=== PATIENT | female | born 1970 | race Asian ===

== ENCOUNTER 2017-07-31 11:34 | Observation (INO) | payer OTHER ==
[~2017-07-31] VITALS: Ht 162.6 cm; Wt 83.9 kg
--- NOTE | 2017-07-31 12:13 | ED GI/GU/ABDOMINAL COMPLAINT ---
History of Present Illness General Chief Complaint: Abdominal Pain/Flank Pain Stated Complaint: ABD PAIN SINCE THIS AM Source: patient, family, old records Exam Limitations: no limitations Allergies Coded Allergies: No Known Allergies (07/31/17) Reconcile Medications Clotrimazole (Lotrimin AF) 1 % CREAM..G. 1 LAURE TOP BID ringworm .apply to affected area(s) Oxycodone HCl/Acetaminophen (Percocet 5-325 MG Tablet) 5 MG-325 MG TABLET 1 TAB PO Q4-6 PRN postop pain . Triage Note: PT TO ED WITH C/O DIARRHEA LAST NIGHT, THIS AM MORE DIARRHEA AND VOMITING X 2 THIS AM. LAST MENSES: 07/18/17. Triage Nurses Notes Reviewed? yes ? n Is pt currently ? No HPI: 47F no PMH presenting with diarrhea since last night (2 episodes last night, 2 this morning), as well as since this morning, RLQ pain, malaise, weakness, and nausea. Was in her usual state of health prior to last night, ate a normal dinner, then had loose stools. Pain started abruptly this morning and has been persistent, described as stabbing, non-radiating, not better with lying still or with movement. Diarrhea was described as loose, watery, non-bloody. Denies fever, chills, sore throat, headache, chest pain, SOB, dysuria, hematuria. Of note, patient also noticed a circular red rash on her back that is non-pruritic. (Guera SAUCEDO,Cb) Vital Signs & Intake/Output Vital Signs & Intake/Output ED Intake and Output 08/02 0000 08/01 1200 Intake Total 600 Output Total 800 Balance -200 Intake, IV 600 Output, Urine 800 Patient 83.915 kg Weight (Anna SAUCEDO,Mauricio Moseley) Past History Travel History Traveled to [place] past 21 day No Medical History Any Pertinent Medical History? 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 No (Cb Lynne MD) Review of Systems Review of Systems Constitutional: Reports: no symptoms. EENTM: Reports: no symptoms. Respiratory: Reports: no symptoms. Cardiovascular: Reports: no symptoms. GI: Reports: see HPI. Genitourinary: Reports: no symptoms. Musculoskeletal: Reports: no symptoms. Skin: Reports: no symptoms. Neurological/Psychological: Reports: no symptoms. Hematologic/Endocrine: Reports: no symptoms. Immunologic/Allergic: Reports: no symptoms. All Other Systems: Reviewed and Negative (Cb Lynne MD) Physical Exam Physical Exam General Appearance: well developed/nourished, moderate distress Head: atraumatic, normal appearance Eyes: Bilateral: normal appearance. Ears, Nose, Throat, Mouth: hearing grossly normal, dry mucous membranes Neck: normal inspection, supple, full range of motion Respiratory: normal breath sounds, chest non-tender, no respiratory distress Cardiovascular: regular rate/rhythm Gastrointestinal: soft, RLQ tenderness, no rebound, +guarding Back: normal inspection, normal range of motion Extremities: normal range of motion Neurologic/Psych: awake, alert, oriented x 3, normal mood/affect Skin: intact, normal color, warm/dry, circular ring-like erythematous rash on right back consistent with ringworm Core Measures ACS in differential dx? No Sepsis Present: No Sepsis Focused Exam Completed? No (Cb Lynne MD) Progress Differential Diagnosis: AAA, AMI, appendicitis, biliary colic, bowel obstruction , colon cancer, cholecystitis, diverticulitis, ectopic , endometritis, esophageal varices, gastritis, hepatitis, hernia, hemorrhoids, ischemic bowel, inflamm bowel dis, intrauterine , kidney stone, [place] tear, ovarian cyst, ovarian torsion, pancreatitis, PID/cervicitis, peptic ulcer, PUD/ GERD, perforated viscous, SBO, threatened AB, UTI/pyelo Diagnostic Imaging: Viewed by Me: CT Scan. Discussed w/RAD: CT Scan. Radiology Impression: PATIENT: ESTHER SALAS PRESENT AGE: 47 PATIENT ACCOUNT NO: [id number] : 74 LOCATION: [facility], [place] ORDERING PHYSICIAN: Cb Lynne MD SERVICE DATE: 07/31/17 EXAM TYPE: CAT - CT ABD & PELVIS W IV CONTRAST EXAMINATION: CT ABDOMEN AND PELVIS WITH CONTRAST CLINICAL INFORMATION: Right lower quadrant pain. Diarrhea and vomiting. COMPARISON: None TECHNIQUE: Multidetector volumetric imaging was performed of the abdomen and pelvis following IV administration of 94 mL of Optiray 320 intravenous contrast. Sagittal and coronal reformatted images were obtained on the technologist's workstation. DLP: 419.27 mGy-cm FINDINGS: LUNG BASES: The visualized lung bases are unremarkable. LIVER, GALLBLADDER, AND BILIARY TREE: The liver is normal in size, shape, and attenuation. No focal hepatic lesion or biliary ductal dilatation is present. The gallbladder is unremarkable with no evidence of radiopaque gallstones, gallbladder wall thickening, or obvious pericholecystic inflammatory changes. PANCREAS: Unremarkable. SPLEEN: Unremarkable. ADRENAL GLANDS: Unremarkable. KIDNEYS AND URETERS: The kidneys are normal in size, shape, and attenuation. No hydronephrosis, hydroureter, or calculi seen. No perinephric stranding. There are scattered nonenhancing cortical cysts in both kidneys. BLADDER: Unremarkable. GASTROINTESTINAL TRACT: No right lower quadrant the appendix is dilated to a diameter of 0.9 cm. There is subtle edema in the mesenteric fat around the appendix. Findings consistent with appendicitis. There is no abscess or perforation. Small amount of free fluid right side of pelvis. No free air. The small and large bowel are unremarkable. ABDOMINAL WALL: No significant hernia is appreciated. LYMPH NODES: Normal. VASCULAR: Unremarkable. PELVIC VISCERA: Uterus is anteverted. 2.3 cm hypodensity in the right ovary of dominant follicle. No fluid in the cul-de-sac. OSSEOUS STRUCTURES: Minimal degenerative lipping at the anterior endplates of the lumbar vertebrae. Schmorl's node superior anterior endplate of L4. IMPRESSION: Appendicitis. 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:ALEXANDRA DATE/TIME TRANSCRIBED:07/31/171610 Initial ED [facility]KG: none [facility] Plan of Care: Orders Procedure Date/time Status Add-on Test (ER Only) 07/31 1411 Active HIGH SENSITIVITY CRP 07/31 1230 Complete URINE 07/31 1142 Complete URINALYSIS 07/31 1142 Complete LIPASE 07/31 1142 Complete COMPREHENSIVE METABOLIC PANEL 07/31 1142 Complete CBC WITHOUT DIFFERENTIAL 07/31 1142 Complete AMYLASE 07/31 1142 Complete Laboratory Tests 07/31/17 1348: Urinalysis LIGHT H, Urine Color YEL, Urine Clarity HAZY H, Urine pH 6.0, Ur Specific [place] >= 1.030, Urine Protein 30 H, Urine Ketones 40 H, Urine Nitrite NEG, Urine Bilirubin NEG, Urine Urobilinogen 0.2, Ur Leukocyte Esterase NEG, Ur Microscopic SEDIMENT EXAMINED, Urine RBC 1-3, Urine WBC 1-3 H, Ur Epithelial Cells MANY H, Urine Bacteria MANY H, Urine Mucus MANY H, Urine Hemoglobin NEG, Urine Glucose NEG, Urine Test NEGATIVE 07/31/17 1230: Anion Gap 14, Estimated GFR > 60, BUN/Creatinine Ratio 26.0 H, Glucose 108 H, Calcium 9.0, Total Bilirubin 0.8, AST 25, ALT 34, Alkaline Phosphatase 34, C- React Prot High Sens 0.4 L, Total Protein 7.5, Albumin 4.3, Globulin 3.2, Albumin/Globulin Ratio 1.3, Amylase 69, Lipase 63, CBC w Diff MAN DIFF ORDERED, RBC 4.40, MCV 70.5 L, MCH 21.7 L, RDW 23.5 H, MPV 9.3, Segmented Neutrophils 88 H, Band Neutrophils 4, Lymphocytes 6 L, Monocytes 2, Platelet Estimate ADEQUATE, Polychromasia 1+, Hypochromic-Microcytic 2+, Poikilocytosis 1+, Anisocytosis 2+, Microcytic Cells 2+, Ovalocytes 1+, PUBS MCHC 30.8 L Comments: 07/31/2017 5:07:01 PM case discussed with Dr. Hodges, surgical PA paged. (Anna SAUCEDO,Mauricio Moseley) Departure Departure Disposition: STILL A PATIENT Condition: Stable Clinical Impression Primary Impression: Acute appendicitis Secondary Impressions: Tinea corporis Referrals: Rick Mendoza MD (PCP/Family) Departure Forms: Customer Survey General Discharge Information Prescriptions: Current Visit Scripts Oxycodone HCl/Acetaminophen (Percocet 5-325 MG Tablet) 1 TAB PO Q4-6 PRN postop pain #18 TAB . Clotrimazole (Lotrimin AF) 1 LAURE TOP BID #24 GM .apply to affected area(s) OR/GI Note Spoke With: Carroll SAUCEDO,Rey N. ED Treatment Decision: ESTHER SALAS requires urgent operative management or an emergent procedure that cannot be performed in the Emergency Room setting. Transport To: [facility] (Cb Lynne MD)
[2017-07-31 13:03] LABS: MEAN CORPUSCULAR HGB 21.7 PG (27.0-31.0); MEAN CORPUSCULAR HGB CONC 30.8 G/DL (33.0-37.0); MEAN CORPUSCULAR VOLUME 70.5 FL (81.0-99.0); MEAN PLATELET VOLUME 9.3 FL (7.4-10.4); RBC DISTRIBUTION WIDTH 23.5 % (11.5-14.5)
[2017-07-31 13:21] LABS: PLATELET COUNT 292 /CUMM (130-400)
--- NOTE | 2017-07-31 16:21 | CT SCAN REPORT ---
EXAMINATION: CT ABDOMEN AND PELVIS WITH CONTRAST CLINICAL INFORMATION: Right lower quadrant pain. Diarrhea and vomiting. COMPARISON: None TECHNIQUE: Multidetector volumetric imaging was performed of the abdomen and pelvis following IV administration of 94 mL of Optiray 320 intravenous contrast. Sagittal and coronal reformatted images were obtained on the technologist's workstation. DLP: 419.27 mGy-cm FINDINGS: LUNG BASES: The visualized lung bases are unremarkable. LIVER, GALLBLADDER, AND BILIARY TREE: The liver is normal in size, shape, and attenuation. No focal hepatic lesion or biliary ductal dilatation is present. The gallbladder is unremarkable with no evidence of radiopaque gallstones, gallbladder wall thickening, or obvious pericholecystic inflammatory changes. PANCREAS: Unremarkable. SPLEEN: Unremarkable. ADRENAL GLANDS: Unremarkable. KIDNEYS AND URETERS: The kidneys are normal in size, shape, and attenuation. No hydronephrosis, hydroureter, or calculi seen. No perinephric stranding. There are scattered nonenhancing cortical cysts in both kidneys. BLADDER: Unremarkable. GASTROINTESTINAL TRACT: No right lower quadrant the appendix is dilated to a diameter of 0.9 cm. There is subtle edema in the mesenteric fat around the appendix. Findings consistent with appendicitis. There is no abscess or perforation. Small amount of free fluid right side of pelvis. No free air. The small and large bowel are unremarkable. ABDOMINAL WALL: No significant hernia is appreciated. LYMPH NODES: Normal. VASCULAR: Unremarkable. PELVIC VISCERA: Uterus is anteverted. 2.3 cm hypodensity in the right ovary of dominant follicle. No fluid in the cul-de-sac. OSSEOUS STRUCTURES: Minimal degenerative lipping at the anterior endplates of the lumbar vertebrae. Schmorl's node superior anterior endplate of L4. IMPRESSION: Appendicitis.
--- NOTE | 2017-07-31 19:48 | Operative Report ---
Operative/Inv Procedure Report Surgery Date: 07/31/17 Name of Procedure: Lap appendectomy Pre-Operative Diagnosis: Acute appendicitis Post-Operative Diagnosis: Same Estimated Blood Loss: scant Surgeon/Accredited Farm Manager: Carroll SAUCEDO,Rey MURO Anesthesia: general endotracheal tube Operative/Procedure Note Note: Patient was placed on the OR table in the supine position. After successful induction of general anesthesia the patient's abdomen was prepped clipped and draped in the usual sterile fashion The left arm was tucked. Local anesthetic was injected at the top of the umbilicus and entry into the peritoneum was established via the open Solares technique: a one cm curved incision was made at the top of the umbilicus, the linea alba was secured between 2 pediatric Jacki clamps and incised vertically, 0-Vicryl stay sutures were placed on each side and then while retracting upwards, the peritoneal layer was entered sharply, then through that small opening, using an S retractor acting like a shoehorn, a 10 mm blunt trocar was inserted obliquely to the right and secured with the stay sutures. The gas was turned on to maximum of 15 mm, two 5 mm dissecting ports were then inserted, one suprapubic and one left lower quadrant, laterally. We used a local anesthetic needle to guide their trajectories, particular attention was given to avoid injury to the bowel, the bladder and the epigastric vessels. Then our attention was directed to the right lower quadrant, the small bowel was swept superiorly and medially, revealing the base of the cecum. An inflamed appendix was then mobilized by it from the lateral and inferior peritoneal attachments using cautery. Using a combination of a [place] dissector, peanut dissector and a [place] clamp, a window was developed between the mesoappendix and the base of the appendix. This window is then used to divide the appendix at the base and the mesoappendix with a linear stapling device, separately, using an intestinal cartridge for the appendix and a vascular cartridge for the mesoappendix; the division of the appendix includes a small flange of cecal base. The appendix is lowered into an Endobag and set aside. The staple lines were checked for bleeding and small oozing was controlled with light zaps of the cautery. We deliberately irrigate the area including up by the liver and down in the pelvis, several rounds, checking the staple lines and each time to make sure that there is no ongoing bleeding. Next the instruments and the trochars and Endobag are removed, letting the gas out. We closed the umbilical fascial incision with a [id number] 0 vicryl suture, then the 3 skin incisions are closed with multiple interrupted subcuticular 4-0 Biosyn sutures, 3 for the umbilical, 1 each for the smaller ones, then covered with Mastisol, Steri-Strips and Band-Aids. EBL minimal Lap and sponge and sponge counts: correct Wound expectancy: infected IV fluids: crystalloid Complications: none Patient tolerated the procedure well was awakened and extubated and returned to the recovery room in satisfactory condition.
--- NOTE | 2017-07-31 19:55 | History & Physical Pre-Op ---
General Information and HPI History of Present Illness: CC: abdominal pain HPI: Adopted 47-year-old yo non-diabetic non-smoker overweight female for the first time had pain like this started early this morning more in the middle of her abdomen she thought it was gas she had some diarrhea last night but otherwise has been feeling well no recent antibiotics or infections or changes in bowel habits weight or appetite, but this discomfort then migrated and persisted in the right lower quadrant only somewhat relieved with IV analgesics in the ER. She denies any dysuria she did have some nausea and vomiting a few times no feversno chills no recent flulike symptoms or sore throat, no relation to foods. I've reviewed the [facility]. No history of GERD, PUD, bleeding problems, heart disease or issues with anesthesia. 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 Surgical History Pertinent Surgical History: non-contributory Past Family/Social History Psychosocial History ETOH Use: denies use Illicit Drug Use: denies illicit drug use Review of Systems Review of Systems: Constitutional: No fever, sweats or weight loss ENMT: No sore throat Cardiovascular: No chest pain, palpitations or leg swelling Respiratory: No shortness of breath, cough, or sputum or dyspnea on exertion GI: No GERD or bleeding per rectum : No dysuria or hematuria Musculoskeletal: No new muscle weakness, bone or joint pain Skin / Breast: No jaundice, rashes or itching Psychiatric: No history of drug or alcohol abuse no depression or anxiety Hematologic / lymphatic system: No problems with excessive bleeding, bruising, or blood clots Exam & Diagnostic Data Last 24 Hrs of Vital Signs/I&O I reviewed Vital Signs Date Time Temp Pulse Resp B/P B/P Pulse O2 O2 Flow FiO2 Mean Ox Delivery Rate 07/31 1908 98.4 67 16 113/72 100 Room Air 07/31 1700 98.3 70 16 123/58 100 Room Air 07/31 1351 97.5 65 16 133/63 100 Room Air 07/31 1136 96.1 62 18 135/63 100 Room Air Room Air I reviewed Intake & Output 07/31 1600 07/31 0800 07/31 0000 Intake Total Output Total Balance Patient 185 lb Weight Weight Reported by Patient Measurement Method Physical Exam: Constitutional: pleasant, no acute distress, conversant Eyes: sclera anicteric ENMT: ears and nose atraumatic, moist mucous membranes, good dentition, no lip lesions Neck: Supple, trachea is midline, no cervical or supraclavicular adenopathy and no palpable thyromegaly Cardiovascular: S1, S2, no murmurs, no peripheral edema Respiratory: clear to auscultation with normal respiratory effort and no intercostal retractions GI: abdomen soft, very focal McBurney's point tenderness with some voluntary guarding, nondistended, no palpable hepatosplenomegaly Extremities / lymphatics: symmetrically warm, free range of motion no peripheral edema, no cervical, supraclavicular, axillary, or inguinal adenopathy Musculoskeletal: Did not evaluate gait and station, no digital cyanosis, good muscle strength and tone no atrophy, motor grossly 5 out of 5 throughout Skin: no jaundice, no rashes warm, nondiaphoretic, no areas of erythema or induration Psychiatric: mood and affect are appropriate and alert and oriented to person place and time Last 24 Hrs of Labs/Robin: I reviewed Laboratory Tests 07/31/17 1348: Urinalysis LIGHT H, Urine Color YEL, Urine Clarity HAZY H, Urine pH 6.0, Ur Specific [place] >= 1.030, Urine Protein 30 H, Urine Ketones 40 H, Urine Nitrite NEG, Urine Bilirubin NEG, Urine Urobilinogen 0.2, Ur Leukocyte Esterase NEG, Ur Microscopic SEDIMENT EXAMINED, Urine RBC 1-3, Urine WBC 1-3 H, Ur Epithelial Cells MANY H, Urine Bacteria MANY H, Urine Mucus MANY H, Urine Hemoglobin NEG, Urine Glucose NEG, Urine Test NEGATIVE 07/31/17 1230: Anion Gap 14, Estimated GFR > 60, BUN/Creatinine Ratio 26.0 H, Glucose 108 H, Calcium 9.0, Total Bilirubin 0.8, AST 25, ALT 34, Alkaline Phosphatase 34, C- React Prot High Sens 0.4 L, Total Protein 7.5, Albumin 4.3, Globulin 3.2, Albumin/Globulin Ratio 1.3, Amylase 69, Lipase 63, CBC w Diff MAN DIFF ORDERED, RBC 4.40, MCV 70.5 L, MCH 21.7 L, RDW 23.5 H, MPV 9.3, Segmented Neutrophils 88 H, Band Neutrophils 4, Lymphocytes 6 L, Monocytes 2, Platelet Estimate ADEQUATE, Polychromasia 1+, Hypochromic-Microcytic 2+, Poikilocytosis 1+, Anisocytosis 2+, Microcytic Cells 2+, Ovalocytes 1+, PUBS MCHC 30.8 L Assessment/Plan Assessment/Plan: I looked at today CT scan on PACS myself he can see an inflamed thickened appendix pointing inferiorly Impression is acute appendicitis. I explained to the patient that this is a potentially life-threatening infection for which I recommend an appendectomy. I feel antibiotics often alone are not enough and sometimes there is an occult malignancy. The severity of infection is related to the chance of perforation which usually increases after about 24 hours fortunately the patient is presenting earlier. Depending on what we find intraoperatively they may be discharged the same day or may need to stay for more IV antibiotics, at depends. I also discussed the possibility of a postoperative infection whether superficial or deep, this is also related to the initial severity and may also appear even a week later after an initial interval of well-being during the recovery. I explained the operation we usually do it laparoscopically rarely converting to open, depending on the amount of inflammation and whether the anatomy is very unusual all to avoid inadvertent injury to surrounding surrounding structures such as bowel and blood vessels and ureter. We also discussed the potential risks, benefits and alternatives to the procedure and surgery in general, issues that included but were not limited to, anesthetic risks hemorrhage requiring transfusion, the risk of transfusion itself, infection, heart attack, stroke, . As Ranked By This Provider Problem List: 1. Acute appendicitis
--- NOTE | 2017-07-31 22:18 | PN- General Surgery ---
Subjective Subjective: Post op check Awake, alert, No complaints at this time Pain is well controlled Denies nausea, tolerating liquids Objective Vital Signs and I&Os Vital Signs Date Time Temp Pulse Resp B/P B/P Pulse O2 O2 Flow FiO2 Mean Ox Delivery Rate 07/31 1908 98.4 67 16 113/72 100 Room Air 07/31 1700 98.3 70 16 123/58 100 Room Air 07/31 1351 97.5 65 16 133/63 100 Room Air 07/31 1136 96.1 62 18 135/63 100 Room Air Room Air Intake & Output 07/31 1600 07/31 0800 07/31 0000 07/30 1600 07/30 0700 07/30 0000 Intake Total Output Total Balance Patient 185 lb Weight Weight Reported by Patient Measurement Method Physical Exam: vss, afebrile General; alert and oriented times three Chest: clear anteriorly bilat, RRR Abd: soft, good bs Ext: warm no edema Wd: dressed, dry Assessment/Plan Assessment/Plan 47yo female s/p lap appy unasyn for 24 hrs hep sc ALPS regular diet IVF until tolerating diet and po intake increased Core Measures Venous Thromboembolism VTE Risk Factors Surgery No Mechanical VTE Prophylaxis d/t N/A MechProphylax Ordered No VTE Pharm Prophylaxis d/t NA PharmProphylax ordered
[2017-07-31 23:00] VITALS: BP 120/69
[2017-08-01 00:43] VITALS: BP 122/62
[2017-08-01 03:19] VITALS: BP 120/68
--- NOTE | 2017-08-01 07:08 | Patient Discharge Instructions ---
Discharge Instructions General Discharge Information You were seen/treated for: ACUTE APPENDICITIS You had these procedures: LAPAROSCOPIC APPENDECTOMY Watch for these problems: TEMP>101.5, INCREASED WOUND DRAINAGE/REDNESS No bath, but you may shower: Yes Other wound care: KEEP WOUND CLEAN AND DRY Special Instructions: Apply topical antifungal to affected area (right back) twice daily Diet Continue normal diet: Yes Recommended Diet: Regular Activity Activity Limited to: Weight bear as tolerated Other activity limits: NO STRENUOUS ACTIVITY Acute Coronary Syndrome Inclusion Criteria At DC or during hospital stay patient has or had the following: ACS DIAGNOSIS No Discharge Core Measures Meds if any: Prescribed or Continued at Discharge Meds if any: NOT Prescribed or Continued at Discharge Congestive Heart Failure Inclusion Criteria At DC or during hospital stay patient has or had the following: CHF DIAGNOSIS No Discharge Core Measures Meds if any: Prescribed or Continued at Discharge Meds if any: NOT Prescribed or Continued at Discharge Cerebrovascular accident Inclusion Criteria At DC or during hospital stay patient has or had the following: CVA/TIA Diagnosis No Discharge Core Measures Meds if any: Prescribed or Continued at Discharge Meds if any: NOT Prescribed or Continued at Discharge Venous thromboembolism Inclusion Criteria VTE Diagnosis No VTE Type NONE VTE Confirmed by (Test) NONE Discharge Core Measures - Per Current guidelines, there needs to be overlap - treatment for the first 5 days of Warfarin therapy. - If discharged on Warfarin prior to 5 days of - overlap therapy, the patient will need to be - assessed for post discharge needs including - *Post discharge parental anticoagulation - *Warfarin and/or parental anticoagulation education - *Follow up date to check INR post discharge At least 5 days overlap therapy as Inpatient Yes Meds if any: Prescribed or Continued at Discharge Note: Overlap Therapy is Warfarin and Anticoagulant Meds if any: NOT Prescribed or Continued at Discharge
--- NOTE | 2017-08-01 07:16 | PN- Orthopedic ---
See Addendum Subjective Subjective: POD#1 S/P LAP APPY RESTING COMFORTABLY DENEIS CP, SOB, NO N+V WITH CLEARS Objective Vital Signs and I&Os Vital Signs Date Time Temp Pulse Resp B/P B/P Pulse O2 O2 Flow FiO2 Mean Ox Delivery Rate 08/01 0319 98.2 69 16 120/68 99 Room Air 08/01 0043 98.6 81 16 122/62 07/31 2300 71 16 120/69 100 07/31 1908 98.4 67 16 113/72 100 Room Air 07/31 1700 98.3 70 16 123/58 100 Room Air 07/31 1351 97.5 65 16 133/63 100 Room Air 07/31 1136 96.1 62 18 135/63 100 Room Air Room Air Intake & Output 08/01 0800 08/01 0000 07/31 1600 07/31 0800 07/31 0000 07/30 1600 Intake Total 600 Output Total 800 300 Balance -200 -300 Intake, IV 600 Output, Urine 800 300 Patient 185 lb 185 lb Weight Weight Reported by Patient Reported by Patient Measurement Method Physical Exam: CV: RRR LUNGS: CLEAR ABD: SOFT, NO GUARDING TO DEEP PALP +BS, DRSGS DRY NO PERITONEAL SIGNS EXT: WARM, DISTAL CMS INTACT Assessment/Plan Assessment/Plan S/P LAP APPY PLAN D/C IV NARCS, PERCOCET ONLY ADVANCE DIET OOB /AMBULATE HOME D/C LATER TODAY Core Measures Venous Thromboembolism VTE Risk Factors Surgery No Mechanical VTE Prophylaxis d/t N/A MechProphylax Ordered No VTE Pharm Prophylaxis d/t NA PharmProphylax ordered
[2017-08-01 07:32] VITALS: BP 120/62
[2017-08-01] MEDS ORDERED: PERCOCET 5-3251 EACH PO ×2 (08:29→09:15)
[2017-08-01] MEDS ORDERED: LOTRIMIN AF12 GM TOP ×2 (08:29→09:15)
[2017-08-01 09:30] LABS: MEAN CORPUSCULAR HGB 21.8 PG (27.0-31.0); MEAN PLATELET VOLUME 10.2 FL (7.4-10.4); WHITE BLOOD CELL COUNT 9.7 /CUMM (4.8-10.8)
[2017-08-01 09:57] LABS: HEMATOCRIT 28.4 % (37-47); MEAN CORPUSCULAR HGB CONC 30.8 G/DL (33.0-37.0); MEAN CORPUSCULAR VOLUME 70.7 FL (81.0-99.0); PLATELET COUNT 219 /CUMM (130-400); RBC DISTRIBUTION WIDTH 23.6 % (11.5-14.5); RED BLOOD CELL CT 4.02 /CUMM (4.20-5.40)
== END 2017-08-01 10:10 ==
LOC: ERH 11:34 → ER-OR 11:57 → ERHI 21:41 → ENRESERV 21:53 → 2NB 22:23 → ENPENDDIS 08-01 09:30 → ENTRNSPT 08-01 10:01 → EDTRNSPTSTS 08-01 10:07 → EDTRNSPT 08-01 10:07 → 2NB 08-01 10:10 → CMPTRNSPT 08-01 10:19
PROVIDERS: Emergency Medicine; Physician Assistant Surgical
DX: K35.80 Unspecified acute appendicitis (principal); R10.31 Right lower quadrant pain; R11.0 Nausea; R53.1 Weakness
CPT/HCPCS: 6040; 36415; 74177; 81001; 81025; 88304; 96374; 96375; 96376; C9399; G0378; J0131; J1644; J1885; J2250; J2405; J3010